=== PATIENT | male | born 2000 | race Caucasian/White ===

== ENCOUNTER 2021-06-29 21:37 | Emergency (ER) | payer OTHER, SELFPAY ==
--- NOTE | 2021-06-29 22:35 | RAD_ITS ---
EXAM: XR LEFT HAND COMPLETE, 3 OR MORE VIEWS CLINICAL INDICATION: TRAUMA, PAIN IN THUMB WHILE PLAYING HOCKEY TECHNIQUE: Frontal, lateral and oblique views of the left hand. This report was created using [employer] report generation technology. COMPARISON: None. FINDINGS: BONES/JOINTS: Unremarkable. No acute fracture. No subluxation. Normal alignment. Preservation of the joint space. No sclerotic or destructive changes observed. SOFT TISSUES: Unremarkable. No soft tissue swelling or gas. No radiopaque foreign body. RAD/Hand Min 3 Views IMPRESSION: Negative left hand x-rays. Electronically Signed: Hi Lino MD at 23:23 EST ,
--- NOTE | 2021-06-29 23:41 | EDS_ITS ---
DATE OF SERVICE 06/29/21 CHIEF COMPLAINT: Left thumb pain. HISTORY OF PRESENT ILLNESS: This is a 20-year-old male who was playing hockey and another player's shoulder hit the left thumb. No other injuries. PHYSICAL EXAMINATION: EXTREMITIES: The patient has full range of motion of the thumb with minimal tenderness over the first metacarpal region. No deformity. Normal strength and sensation. DIAGNOSTIC DATA: X-rays negative. IMPRESSION: Left thumb contusion. DISPOSITION/PLAN: The patient will be discharged with reassurance. Discharged in stable condition.
== END 2021-06-29 23:47 | disposition home or self-care (01) ==
PROVIDERS: Emergency Provider Emergency Medicine; Visit Provider Emergency Medicine
DX: S60.012A Contusion of left thumb without damage to nail, initial encounter (principal); W51.XXXA Accidental striking against or bumped into by another person, initial encounter; Y93.65 Activity, lacrosse and field hockey; Y92.9 Unspecified place or not applicable
CPT/HCPCS: 73130; 99283